=== PATIENT | female | born 1985 | race Caucasian/White ===

== ENCOUNTER 2018-08-16 09:21 | Emergency (ER) | payer MEDICAID ==
[~2018-08-16] VITALS: Ht 172.7 cm; Wt 90.8 kg
[~2018-08-16 09:21] MED LIST: HYDR-1666 PO; IRON1TAB75 PO
[2018-08-16 09:28] VITALS: BP 129/60; PULSE 84; RESP 20; Ht 172.7 cm; Wt 90.8 kg
[2018-08-16] MEDS ORDERED: D-ME118S24 PO (11:38)
[2018-08-16] MEDS ORDERED: AMOX500T PO (11:38)
[2018-08-16] MEDS ORDERED: ACET-141 PO (11:39)
[2018-08-16] MEDS ORDERED: IBUP-1561 PO (11:39)
--- NOTE | 2018-08-16 11:48 | ERD ---
ER Documentation Chief Complaint Chief Complaint Complains of a sore throat x 4 weeks HPI 33-year-old female presents for sore throat and cough times 4 weeks. She states that her cough is productive of phlegm. She also has body aches. She has intermittent fevers. She took NyQuil without relief of her cough. She has also been taking Tylenol and Motrin for her fever which has helped. She states that her symptoms initially improved however it returned, appears to be worse now. She denies shortness of breath or chest pain. No significant past medical history. ROS All systems reviewed and are negative except as per history of present illness. Medications Home Meds Active Scripts Ibuprofen* (Motrin*) 400 Mg Tab, 400 MG PO Q6H PRN for PAIN, #30 TAB Prov:SHIRA BROWN DO 08/16/18 Acetaminophen* (Acetaminophen*) 500 MG Extra Strength Tablet, 500 MG PO Q4H PRN for PAIN AND OR ELEVATED TEMP, #30 TAB Prov:SHIRA BROWN DO 08/16/18 D-Methorphan Hb/P-Epd HCl/Bpm (Vzwrlgybds-Jrwsccgxvyn-Ib Syr) 118 Ml Syrup, 5 ML PO Q4H PRN for COUGH for 7 Days, #1 BOTTLE Prov:SHIRA BROWN DO 08/16/18 Amoxicillin Trihydrate (Amoxicillin) 500 Mg Tablet, 500 MG PO Q8 for sinusitis for 5 Days, #15 TAB Prov:SHIRA BROWN DO 08/16/18 Reported Medications Hydrocodone Bit/Acetaminophen (Vicodin 5/500 Tablet) 1 Tab Tablet, 1 TAB PO 04/03/13 Iron &Iron Asp Gly/Fa/Mv,Min38 (IRON TABLET) 1 Each Tablet, 1 EACH PO BID 02/06/13 Allergies Allergies: Coded Allergies: No Known Allergy (Verified , 08/16/18) PMhx/Soc History of Surgery: Yes (TUBAL LIGATION , cholecystectomy ) Anesthesia Reaction: No Hx Neurological Disorder: No Hx Respiratory Disorders: No Hx Cardiac Disorders: No Hx Psychiatric Problems: No Hx Miscellaneous Medical Probl: No Hx Alcohol Use: No Hx Substance Use: No Hx Tobacco Use: No Smoking Status: Never smoker Physical Exam Vitals Vital Signs Date Temp Pulse Resp B/P (MAP) Pulse Ox O2 O2 Flow FiO2 Time Delivery Rate 08/16/18 97.7 84 20 129/60 99 09:28 (83) Physical Exam Const: No acute distress Head: Atraumatic, frontal and paranasal sinus tenderness to palpation Eyes: Normal Conjunctiva ENT: Normal External Ears, bilateral tympanic membrane intact without erythema or bulging noted, nose and Mouth examination normal, no tonsillar swelling or exudate noted Neck: Full range of motion. No meningismus. Resp: Clear to auscultation bilaterally, no wheezing, rales, rhonchi Cardio: Regular rate and rhythm, no murmurs Skin: No petechiae or rashes Ext: No cyanosis, or edema Neur: Awake and alert Psych: Normal Mood and Affect Procedures/MDM Medical Decision Making: Differential diagnosis includes but not limited to upper respiratory infection, pneumonia, sepsis, sinusitis. Patient appeared well on physical examination, nontoxic appearing. Lungs were clear to auscultation bilaterally. There is low suspicion for pneumonia, sepsis. Patient had frontal and paranasal sinus tenderness to palpation. She also had symptoms for the past 4 weeks. Symptoms consistent with a sinusitis. Patient given prescription for supportive medications and antibiotic. Patient advised to follow up with PCP in 1-2 days. Patient advised to return to ED for new or worsening symptoms. Patient stable on discharge from the ED. Disclaimer: Inadvertent spelling and grammatical errors are likely due to EHR/dictation software use and do not reflect on the overall quality of patient care. Also, please note that the electronic time recorded on this note does not necessarily reflect the actual time of the patient encounter. Departure Diagnosis: Primary Impression: Sinusitis Sinusitis location: frontal Chronicity: subacute Qualified Codes: J01.10 - Acute frontal sinusitis, unspecified Condition: Fair Patient Instructions: Sinusitis, Abx Tx Referrals: [facility] YOU HAVE RECEIVED A MEDICAL SCREENING EXAM AND THE RESULTS INDICATE THAT YOU DO NOT HAVE A CONDITION THAT REQUIRES URGENT TREATMENT IN THE EMERGENCY DEPARTMENT. FURTHER EVALUATION AND TREATMENT OF YOUR CONDITION CAN WAIT UNTIL YOU ARE SEEN IN YOUR DOCTORS OFFICE WITHIN THE NEXT 1-2 DAYS. IT IS YOUR RESPONSIBILITY TO MAKE AN APPOINTMENT FOR FOLOW-UP CARE. IF YOU HAVE A PRIMARY DOCTOR --you should call your primary doctor and schedule an appointment IF YOU DO NOT HAVE A PRIMARY DOCTOR YOU CAN CALL OUR PHYSICIAN REFERRAL HOTLINE AT IF YOU CAN NOT AFFORD TO SEE A PHYSICIAN YOU CAN CHOSE FROM THE FOLLOWING [facility] [address] [facility] [address] [facility] [address] [facility] [address] [facility] [address] [facility]. [facility] [address] Additional Instructions: Llame al doctor MAANA y zeynep zhang ARNALDO PARA DENTRO DE 1-2 ELLIOTT.Dgale a la secretaria que nosotros le instruimos hacer esta arnaldo.Avise o llame si mitchell condicin se empeora antes de la arnaldo. Regresa aqui si peor o no mejor. SHIRA BROWN DO Aug 16, 2018 11:48
== END 2018-08-16 11:49 | disposition home or self-care (01) ==
LOC: FTE 09:21
DX: J01.10 Acute frontal sinusitis, unspecified (principal)
CPT/HCPCS: 99283